=== PATIENT | female | born 1945 | race Caucasian/White ===

== ENCOUNTER 2018-01-23 05:50 | Day surgery (SDC) | payer MEDICARE, BC ==
--- NOTE | 2018-01-22 18:15 | Pre-op HX & Phy Repo 2 SIG ---
DATE OF ADMISSION: 01/23/2018 DATE OF SURGERY: 01/23/2018 PREOPERATIVE DIAGNOSIS: Severe vitreomacular traction syndrome, left eye. BRIEF NOTE: This is a first [facility] admission for this patient, who is a very nice 72-year-old lady, who complained of difficulty with seeing street signs and blurred vision with distortion in the left eye. PAST OCULAR HISTORY: Remarkable for cataract surgery done in both eyes successfully in the past. She also has history of glaucoma, controlled on topical medications. She has dry macular degeneration without prior injections or progression in the left eye. MEDICAL HISTORY: Remarkable for heart disease, hypertension and thyroid disease. MEDICATIONS: Current medications include Crestor, Lotensin, Synthroid, hydrochlorothiazide, and metoprolol. ALLERGIES: She has no known allergies. PHYSICAL EXAMINATION: Best vision at the time of admission was 20/60 in the right eye and 20/70 on the left with pressures to be 11. The anterior segment showed posterior chamber lens was in good position. Fundus examination showed bilateral glaucomatous cupping. The cups were 0.7 in either eye. Few pigmentary changes were seen in each macula, but no evidence of blood or lipid. The left fundus showed vitreomacular traction syndrome with pockets of fluid as well as elevation and distortion of the central retina. ASSESSMENT: 1. Vitreomacular adhesions, left eye with traction. 2. History of glaucoma. 3. Pseudophakia. PLAN: The plan is to perform a pars plana vitrectomy with membrane peeling, and injection of low-dose steroid in the left eye. The risks and benefits of surgery were gone over the patient with potential infection, hemorrhage, worsening of the glaucoma, retinal detachment and remote possibility of loss of the eye. The risk of anesthesia was discussed. The patient understands and consents to the surgery, which will be performed on tomorrow morning. Mati Forrest M.D. DR: ABHIJEET JOB#: [id number] CC: MANNY
[2018-01-23] VITALS (9 sets, daily range): BP systolic 104–124; BP diastolic 56–71
[~2018-01-23] VITALS: Ht 161.3 cm; Wt 55.3 kg
[~2018-01-23 05:50] MED LIST: ASPIR 8181 MG ORAL; CRESTOR10 M2 ORAL; Cyclopentolate 1% Opth Sol 2ml ONE; Flurbiprofen 0.03% Opth Sol 2.5ml ONE; HYDROCHLOROTH12.5 M2 ORAL; LOTENSIN40 MG ORAL; METOPROLOL TART50 M1 ORAL; Phenylephrine 2.5% Op 2ml Soln ONE; SYNTHROID25 MCG ORAL; TRAVATAN Z5 ML OP; TRUSOPT10 ML BOTH EYES; Vigamox Opth Soln 3ml ONE
[2018-01-23] MEDS ORDERED: Pred Forte 1% Opth Susp 1ml LEFT EYE SCH (06:00)
[2018-01-23] MEDS ORDERED: Indocyanine Green 25mg Inj INJ ONE (06:00)
[2018-01-23] MEDS: Vigamox Opth Soln 3ml LEFT EYE SCH ×3 (06:14→06:40)
[2018-01-23] MEDS: Flurbiprofen 0.03% Opth Sol 2.5ml LEFT EYE SCH ×3 (06:14→06:40)
[2018-01-23] MEDS: Cyclopentolate 1% Opth Sol 2ml LEFT EYE SCH ×3 (06:14→06:40)
[2018-01-23] MEDS: Phenylephrine 2.5% Op 2ml Soln LEFT EYE SCH ×3 (06:14→06:39)
--- NOTE | 2018-01-23 06:26 | Pre-Procedure Note/Attestation ---
Pre-Procedure Note/Attestation Complete Prior to Procedure Planned Procedure: left Procedure Narrative: PPV, membrane peel, possible Kenalog injection Left eye Indications for Procedure Pre-Operative Diagnosis: Vitreo-macular traction syndrome Left eye Attestation I attest that I discussed the nature of the procedure; its benefits; risks and complications; and alternatives (and the risks and benefits of such alternatives ), prior to the procedure, with the patient (or the patient's legal sales representative business courses). I attest that, if there was a reasonable possibility of needing a blood transfusion, the patient (or the patient's legal sales representative business courses) was given the [facility] standardized written summary, pursuant to the Aki Abhijeet Blood Safety Act ([place] [facility] and Safety Code # 1645, as amended). I attest that I re-evaluated the patient just prior to the surgery and that there has been no change in the patient's H&P, except as documented below: KENYATTA LEI Jan 23, 2018 06:26
[2018-01-23] MEDS ORDERED: Kenalog-40 1ml Vial ONE (07:01)
[2018-01-23] MEDS ORDERED: BSS 500ml btl ONE (07:01)
[2018-01-23] MEDS ORDERED: Maxitrol Opth Oint 3.5gm ONE (07:02)
[2018-01-23] MEDS ORDERED: Dexamethasone 4mg/ml vial ONE (07:02)
[2018-01-23] MEDS ORDERED: Tetracaine 0.5% Opth 4ml Soln ONE (07:02)
[2018-01-23] MEDS ORDERED: Kenalog-10 5ml Inj ONE (07:02)
[2018-01-23] MEDS ORDERED: Povidone-Iodine 5% opth solution ONE (07:03)
[2018-01-23] MEDS ORDERED: Lidocaine 2% MPF 5ml Vial INJ ONE (07:03)
[2018-01-23] MEDS ORDERED: BSS 15ml BTL ONE (07:03)
[2018-01-23] MEDS ORDERED: Sodium Hyaluronate 10 mg/ml 0.85ml ONE (07:03)
[2018-01-23] MEDS ORDERED: Bupivacaine 0.75% 30ml vial INJ ONE (07:03)
[2018-01-23] MEDS ORDERED: EPINEPHrine 1mg/1ml Amp ONE (07:15)
[2018-01-23] MEDS ORDERED: LR 1000ml ONE (07:30)
[2018-01-23] MEDS ORDERED: NS Irrig 1000ml ONE (07:30)
[2018-01-23] MEDS ORDERED: Lidocaine 1% MPF 10mg/ml 5ml ONE (07:30)
[2018-01-23] MEDS ORDERED: Sterile Water Irrig 1000ml IRRIG ONE (07:30)
[2018-01-23] MEDS ORDERED: Midazolam 2mg/2ml Inj ONE (07:30)
[2018-01-23] MEDS ORDERED: Propofol 200mg/20ml IV ONE (07:30)
--- NOTE | 2018-01-23 07:41 | Anethesia Preoperative Eval ---
Anesthesia Pre-op PMH/ROS General Date of Evaluation: Jan 23, 2018 Time of Evaluation: 07:31 Anesthesiologist: Ignacio ASA Score: ASA 3 Mallampati Score Class I : Soft palate, uvula, fauces, pillars visible Class II: Soft palate, uvula, fauces visible Class III: Soft palate, base of uvula visible Class IV: Only hard plate visible Mallampati Classification: Class II Surgeon: Adriane Diagnosis: Macular Traction OS Surgical Procedure: Vitrectomy OS Anesthesia History: none Family History: no anesthesia problems Allergies: Coded Allergies: No Known Allergies (Unverified , 01/22/18) Medications: see eMAR Past Medical History Cardiovascular: Reports: HTN, CAD, arrhythmia - Pacemaker, other HEENT: Reports: cataract (L), cataract (R) Hematology/Immune: Reports: other - Melanoma PSxH Narrative: Appendectomy, Cholecystectomy Anesthesia Pre-op Phys. Exam Physician Exam Last Vital Signs Date Time Temp Pulse Resp B/P (MAP) Pulse Ox O2 Delivery O2 Flow Rate FiO2 01/23/18 06:17 97.4 70 18 120/71 99 Room Air 97.4 Constitutional: NAD Neurologic: CN 2-12 intact Cardiovascular: RRR Respiratory: CTA Gastrointestinal: S/NT/ND Airway Exam Mallampati Score: Class II MO: limited ROM: limited Teeth: missing, intact Anesthesia Pre-op A/P Risk Assessment & Plan Assessment: ASA 3 Plan: GA Status Change Before Surgery: Kenneth Dorado MD Jan 23, 2018 07:40
[2018-01-23] MEDS ORDERED: LR 1000ml 1,000 ML IVLG SCH (07:54)
[2018-01-23] MEDS ORDERED: LORazepam Inj 2mg/ml 1ml IV PRN (08:00)
[2018-01-23] MEDS ORDERED: Hydromorphone 0.5mg/0.5ml inj IVP PRN (08:00)
[2018-01-23] MEDS ORDERED: fentaNYL 100 mcg/2 mL IV PRN (08:00)
[2018-01-23] MEDS ORDERED: Labetalol 5mg/ml 20ml vial IV PRN (08:00)
[2018-01-23] MEDS ORDERED: DiphenhydrAMINE 50mg/ml Inj IVP PRN (08:00)
[2018-01-23] MEDS ORDERED: oxyCODONE HCL/Acetaminophen 5/325mg ORAL PRN (08:00)
[2018-01-23] MEDS ORDERED: Norco 5mg/325mg tab ORAL PRN ×2 (08:00→15:01)
[2018-01-23] MEDS ORDERED: Midazolam 2mg/2ml Inj IVP PRN (08:00)
[2018-01-23] MEDS ORDERED: Ketorolac 30mg Inj IV PRN ×2 (08:00)
[2018-01-23] MEDS ORDERED: Atropine Inj 1mg/10ml Syr IV PRN (08:00)
[2018-01-23] MEDS ORDERED: HYDROcodone/Acetamin 7.5/325 tab ORAL PRN (08:00)
--- NOTE | 2018-01-23 08:06 | Immediate Post-Op Evaluation ---
Immediate Post-Op Evalulation Immediate Post-Op Evalulation Procedure: Vitrectomy OS Date of Evaluation: Jan 23, 2018 Time of Evaluation: 08:52 IV Fluids: 600 LR Blood Products: 0 Estimated Blood Loss: 1 Urinary Output: 0 Blood Pressure Systolic: 124 Blood Pressure Diastolic: 69 Pulse Rate: 70 Respiratory Rate: 16 O2 Sat by Pulse Oximetry: 100 Temperature (Fahrenheit): 98.6 Pain Score (1-10): 2 Nausea: No Vomiting: No Complications 0 Patient Status: awake, reacts, patent, none Hydration Status: adequate Kenneth Singh MD Jan 23, 2018 08:06
--- NOTE | 2018-01-23 08:07 | 48 Hour Post Anesthesia Eval ---
Post Anesthesia Evaluation Procedure: Vitrectomy OS Date of Evaluation: Jan 23, 2018 Time of Evaluation: 11:54 Blood Pressure Systolic: 128 0: 68 Pulse Rate: 69 Respiratory Rate: 18 Temperature (Fahrenheit): 98.6 O2 Sat by Pulse Oximetry: 100 Airway: patent Nausea: No Vomiting: No Pain Intensity: 1 Hydration Status: adequate Cardiopulmonary Status: Stable Mental Status/LOC: patient returned to baseline Follow-up Care/Observations: 0 Post-Anesthesia Complications: 0 Follow-up care needed: ready to discharge Kenneth Singh MD Jan 23, 2018 08:07
--- NOTE | 2018-01-23 08:49 | Brief Operative Note ---
Immediate Post Operative Note Operative Note Chief Complaint: Distorted and blurred vision Left eye Pre-op Diagnosis: Vitreo-macular traction syndrome Left eye Procedure: PPV, ICG and Kenalog assisted mebrane peel, Endolaser L eye Post-op Diagnosis: same as pre-op plus - Peripheral dot heme Surgeon: ernie Anesthesiologist: catarina Anesthesia: MAC Specimen: none Complications: none Condition: stable Fluids: Per anesthesia Estimated Blood Loss: none Drains: none Implant(s) used?: No KENYATTA LEI Jan 23, 2018 08:49
--- NOTE | 2018-01-23 22:15 | Operative Note - Dictated ---
DATE OF OPERATION: 01/23/2018 PREOPERATIVE DIAGNOSIS: Vitreomacular traction syndrome, left eye. POSTOPERATIVE DIAGNOSIS: Vitreomacular traction syndrome, left eye. PROCEDURES: 1. Pars plana vitrectomy. 2. ICG and Kenalog-assisted membrane peel. 3. Endolaser, left eye. SURGEON: Mati Forrest M.D. CONTINUOUS IMPROVEMENT MANAGER: None. ANESTHESIA: Local with sedation. ANESTHESIOLOGIST: Kenneth Singh M.D. JUSTIFICATION FOR SURGERY: This 72-year-old lady with a history of glaucoma and prior cataract surgery, developed blurred and distorted vision, was found to have a vitreomacular traction in the left eye. BRIEF NOTE: The patient was brought to the operating room, placed on operating room table in supine position. After a time-out was performed and agreed upon by the staff, initial monitoring secured by Dr. Singh. Retrobulbar and Van Lint blocks given in standard way. When the blocks taken effect, she was prepped and draped in normal manner. A lid speculum inserted into the left eye. Using a 23-gauge trocar system, cannulas were placed in all except infranasal quadrant. Infusion secured inferotemporally. Vitrectomy was begun posterior to the lens implant. Vitreous adhesions were removed and a central core vitrectomy was done. Vitrectomy was carried further peripherally leaving a small vitreous skirt. Kenalog was used to aid in visualization of vitreous and there seemed to be a very taut posterior hyaloid. Attempted suction, liberated much of the posterior hyaloid, but adhesions directly over the macula and out temporally remained. A posterior viewing lens was inserted and additional suction applied. ICG dye was then used in an effort to stain the posterior hyaloid and look for openings in the ILM. The hyaloid was seen fairly clearly and using intra-ocular forceps, the membranes were gently elevated and peeled from the macula. A small hemorrhage was noted from a superficial retinal vessels, superior and temporal to the fovea. The bleeding stopped immediately and did not extend into the fovea. There were no tears in the retina. The vitreous cutter was used to gently shave the remaining posterior hyaloid from the temporal portion of the retina leaving all posterior structures clean. Scleral depression was done and although no peripheral breaks, tears, or detachments were seen, several small superficial hemorrhages were noted at the vitreous base. Endolaser was brought into the eye and a power of 0.3 francois, duration 0.2 seconds, all of these lesions were surrounded with laser. A total of 369 lesions were applied and repeat scleral depression revealed no additional pathology. The instruments were removed from the eye and superior sclerotomy sites were closed with 8-0 Vicryl suture with the knot rotated and buried. The eye was reinfused 10 mmHg and the infusion cannula was removed and this sclerotomy also closed. Subconjunctival Decadron and gentamicin were then injected. Maxitrol and atropine ointments were instilled. The eye was patched and shielded and the patient taken to recovery in excellent condition. No complications. Mati Forrest M.D. DR: ABHIJETE JOB#: [id number] CC: MANNY
== END 2018-01-23 10:10 | disposition home or self-care (01) ==
LOC: SUR 05:50
DX: H43.822 Vitreomacular adhesion, left eye (principal); I11.9 Hypertensive heart disease without heart failure; Z95.0 Presence of cardiac pacemaker; Z90.89 Acquired absence of other organs; Z90.49 Acquired absence of other specified parts of digestive tract; Z85.820 Personal history of malignant melanoma of skin
CPT/HCPCS: 67039; 67042; J0171; J1100; J2250; J2704; J3301; J3470; J3490; J7120; 94003; 94150